=== PATIENT | female | born 1985 | race Caucasian/White ===

== ENCOUNTER → 2024-03-21 07:36 | Outpatient (REF) | payer OTHER, SELFPAY | LOC: PNTC 07:36 | PROVIDERS: ATTENDING PHYSICIAN Obstetrics & Gynecology | DX: O09.519 Supervision of elderly primigravida, unspecified trimester (principal); O09.819 Supervision of pregnancy resulting from assisted reproductive technology, unspecified trimester | CPT/HCPCS: 76805 ==

== ENCOUNTER → 2024-05-31 06:49 | Outpatient (REF) | payer BC, SELFPAY | LOC: PNTC 06:49 | PROVIDERS: ATTENDING PHYSICIAN Obstetrics & Gynecology | DX: O09.519 Supervision of elderly primigravida, unspecified trimester (principal); O09.819 Supervision of pregnancy resulting from assisted reproductive technology, unspecified trimester | CPT/HCPCS: 76816 ==

== ENCOUNTER → 2024-07-11 07:51 | Outpatient (REF) | payer BC, SELFPAY | LOC: PNTC 07:51 | PROVIDERS: ATTENDING PHYSICIAN Obstetrics & Gynecology | DX: O09.519 Supervision of elderly primigravida, unspecified trimester (principal); O09.819 Supervision of pregnancy resulting from assisted reproductive technology, unspecified trimester | CPT/HCPCS: 76816 ==

== ENCOUNTER → 2024-08-09 06:49 | Outpatient (REF) | payer BC, SELFPAY | LOC: PNTC 06:49 | PROVIDERS: ATTENDING PHYSICIAN Obstetrics & Gynecology | DX: O09.819 Supervision of pregnancy resulting from assisted reproductive technology, unspecified trimester (principal); O09.529 Supervision of elderly multigravida, unspecified trimester | CPT/HCPCS: 59025; 76816 ==

== ENCOUNTER → 2024-08-16 06:58 | Outpatient (REF) | payer BC, SELFPAY | LOC: PNTC 06:58 | PROVIDERS: ATTENDING PHYSICIAN Obstetrics & Gynecology | DX: O09.529 Supervision of elderly multigravida, unspecified trimester (principal); O09.819 Supervision of pregnancy resulting from assisted reproductive technology, unspecified trimester | CPT/HCPCS: 59025; 76815 ==

== ENCOUNTER → 2024-08-23 06:56 | Outpatient (REF) | payer BC, SELFPAY | LOC: PNTC 06:56 | PROVIDERS: ATTENDING PHYSICIAN Obstetrics & Gynecology | DX: O09.819 Supervision of pregnancy resulting from assisted reproductive technology, unspecified trimester (principal); O09.529 Supervision of elderly multigravida, unspecified trimester | CPT/HCPCS: 59025; 76815 ==

== ENCOUNTER → 2024-08-29 16:01 | Outpatient (REF) | payer BC, SELFPAY | LOC: PNTC 16:01 | PROVIDERS: ATTENDING PHYSICIAN Obstetrics & Gynecology | DX: O09.819 Supervision of pregnancy resulting from assisted reproductive technology, unspecified trimester (principal); O09.529 Supervision of elderly multigravida, unspecified trimester | CPT/HCPCS: 59025; 76816 ==

== ENCOUNTER 2024-08-29 19:07 | Inpatient (IN) | payer BC, SELFPAY ==
[2024-08-29 19:18] VITALS: BP 111/85; BMI 31.6
[2024-08-29 20:25] LABS: % Basophils 0.2 % (0-2); % Eosinophils 0.4 % (0-6); % Immature Granulocytes 0.2 % (0-0.5); % Lymphocytes 26.5 % (20.5-51.1); % Monocytes 5.1 % (1.7-9.3); % Neutrophils 67.6 % (42.2-75.2); Absolute Lymphocytes 2.4 10^3/uL (1.2-3.4); Absolute Monocytes 0.5 10^3/uL (0.1-0.6); Absolute Neutrophils 6.1 10^3/uL (1.4-6.5); Hemoglobin 13.8 g/dL (12.0-16.0); Mean Corp Hgb Conc. 33.7 g/dL (33.0-37.0); Mean Corpuscular Hgb 29.2 pg (27.0-31.0); Mean Corpuscular Volume 86.7 fL (81.0-99.0); Nucleated Red Blood Cells % 0 %; Platelet Count 148 10^3/uL (130-400); Red Blood Cell Count 4.73 10^6/uL (4.20-5.40); Red Cell Dist. Width 13.7 % (11.5-14.5)
[2024-08-29] MEDS: CYTOTEC 50 MICROGRAM VAG (21:06)
[2024-08-30] MEDS: CYTOTEC 50 MICROGRAM PO ×4 (01:17→16:57)
[2024-08-30] MEDS: CYTOTEC PO ×2 (06:34→22:08)
[2024-08-30] MEDS: LR 1000 IV (22:08)
[2024-08-30] MEDS: PITOCIN 30 UNITS/NSS 500 ML IV (22:08)
[2024-08-31] MEDS: LR 1000 IV (06:27)
[2024-08-31] MEDS: FLUSH (NSS) 2 FLUSH IV (06:46)
[2024-08-31] MEDS: ZOFRAN 4 MG IV ×3 (06:46→21:44)
[2024-08-31] MEDS: STADOL 1 MG IV (10:07)
[2024-08-31] MEDS: SUBLIMAZE 100 MCG EPIDURAL (17:30)
[2024-08-31] MEDS: FENTANYL/BUPIVACAINE 100 EPIDURAL (17:30)
[2024-09-01] MEDS: LR 1000 IV (00:50)
[2024-09-01] MEDS: FENTANYL/BUPIVACAINE 100 EPIDURAL (01:45)
[2024-09-01] MEDS: FLUSH (NSS) 2 FLUSH IV (04:39)
[2024-09-01] MEDS: ZOFRAN 4 MG IV (04:39)
[2024-09-01] MEDS: PITOCIN 30 UNITS/NSS 500 ML IV ×2 (05:56→07:10)
[2024-09-01] MEDS: CYTOTEC 800 MCG RECTAL (07:05)
[2024-09-01] MEDS: PRENATAL PLUS PO (11:32)
[2024-09-01] MEDS: MOTRIN 600 MG PO ×2 (12:26→18:27)
[2024-09-01] MEDS: SENOKOT-S 1 TABLET PO (12:26)
[2024-09-01] MEDS: TYLENOL 650 MG PO (18:28)
[2024-09-02] MEDS: TYLENOL 650 MG PO ×2 (00:38→09:13)
[2024-09-02] MEDS: MOTRIN 600 MG PO ×2 (00:38→09:13)
[2024-09-02 05:34] LABS: Hematocrit 36.5 % (37.0-47.0); Hemoglobin 12.4 g/dL (12.0-16.0)
[2024-09-02] MEDS: PRENATAL PLUS 1 TABLET PO (09:13)
[2024-09-02 15:43] LABS: Syphilis/T. pallidum Ab Reflex Negative (Negative)
== END 2024-09-02 14:41 | disposition home or self-care (01) | DRG 805 ==
LOC: LDRP 19:07
PROVIDERS: Obstetrics & Gynecology; ADMITTING PHYSICIAN Obstetrics & Gynecology
PROC: 3E0P7VZ Introduction of Hormone into Female Reproductive, Via Natural or Artificial Opening (ICD-10-PCS; 2024-08-29)
PROC: 3E033VJ Introduction of Other Hormone into Peripheral Vein, Percutaneous Approach (ICD-10-PCS; 2024-08-29)
PROC: 4A1HXCZ Monitoring of Products of Conception, Cardiac Rate, External Approach (ICD-10-PCS; 2024-08-30)
PROC: 10907ZC Drainage of Amniotic Fluid, Therapeutic from Products of Conception, Via Natural or Artificial Opening (ICD-10-PCS; 2024-08-31)
PROC: 0U7C7ZZ Dilation of Cervix, Via Natural or Artificial Opening (ICD-10-PCS; 2024-08-31)
PROC: 10E0XZZ Delivery of Products of Conception, External Approach (ICD-10-PCS; 2024-09-01)
PROC: 0W8NXZZ Division of Female Perineum, External Approach (ICD-10-PCS; 2024-09-01)
DX: O36.63X0 Maternal care for excessive fetal growth, third trimester, not applicable or unspecified (principal); O99.42 Diseases of the circulatory system complicating childbirth; Z37.0 Single live birth; Z3A.39 39 weeks gestation of pregnancy; I34.81 Nonrheumatic mitral (valve) annulus calcification; R00.2 Palpitations; O69.81X0 Labor and delivery complicated by cord around neck, without compression, not applicable or unspecified
CPT/HCPCS: 36415; 59025; 85014; 85018; 85025; 86780; 86850; 86900; 86901